=== PATIENT | female | born 1985 | race Caucasian/White ===

== ENCOUNTER 2018-04-08 13:41 | Emergency (ER) | payer SELFPAY ==
[~2018-04-08] VITALS: Ht 154.9 cm; Wt 64.0 kg
[2018-04-08] MEDS ORDERED: IBUPROFEN 600MG TABLET PO ONE (14:30)
[2018-04-08 15:13] VITALS: BP 90/54
== END 2018-04-08 16:10 | disposition home or self-care (01) ==
LOC: ER 13:41
DX: S50.12XA Contusion of left forearm, initial encounter (principal); W18.2XXA Fall in (into) shower or empty bathtub, initial encounter; Y93.E1 Activity, personal bathing and showering; Y92.012 Bathroom of single-family (private) house as the place of occurrence of the external cause
CPT/HCPCS: 73080; 73090; 81025; 99284